=== PATIENT | female | born 1955 | race Caucasian/White ===

== ENCOUNTER 2023-02-07 12:08 | Emergency (ER) | payer BC, MEDICARE, OTHER ==
--- NOTE | 2023-02-07 12:26 | ED Physician Documentation ---
PD HPI DYSPNEA - Stated complaint Stated Complaint: HIGH BP - Chief complaint Chief Complaint: Cardiac - History obtained from History obtained from: Patient - History of Present Illness Timing - onset: How many days ago (has had mild frtonal to general headache for few days, not worsening. Associated with some blurred vision and wiggly vision both eyes. No focal deficit. No loss of vision. Normal thought process and speech. She took BP this morning to see what it was (does not typically check it) and was elevated.) Timing - onset during: Light activity Timing - duration: Days Timing - details: Gradual onset, Still present, Waxing and waning Inciting event(s): No: Out of meds, URI Improved by: No: Rest Worsened by: No: Exertion Associated symptoms: No: Fever, Cough, Wheezing, Bilateral edema, Unilateral edema Similar symptoms before: Diagnosis (she states she used to get similar headaches years ago and Dx as migraine and would take Midrin and would work very well. Has not had script/ headaches for years. Called PMD for script and was told to come to ER due to elevated BP.) Recently seen: Not recently seen Review of Systems Constitutional: denies: Fever, Chills Eyes: reports: Decreased vision (blurred at times). denies: Loss of vision, Photophobia Nose: reports: Congestion. denies: Rhinorrhea / runny nose Throat: denies: Sore throat Respiratory: denies: Cough Skin: denies: Rash Musculoskeletal: denies: Neck pain, Back pain, Extremity swelling Neurologic: reports: Headache. denies: Generalized weakness, Focal weakness, Numbness, Confused, Altered mental status PD PAST MEDICAL HISTORY - Past Medical History Cardiovascular: Hypertension Respiratory: None Neuro: Migraines Endocrine/Autoimmune: None - Present Medications Home Medications: Ambulatory Orders Medication Instructions Recorded Confirmed Butalb/Acetam/Caff 50/325/40 1 each PO Q6H PRN #25 tablet 02/07/23 [Fioricet] Losartan Potassium [Cozaar] 100 mg PO DAILY #20 tab 02/07/23 dexAMETHasone [Decadron] 4 mg PO DAILY #5 tablet 02/07/23 - Allergies Allergies/Adverse Reactions: Allergies Allergy/AdvReac Type Severity Reaction Status Date / Time Penicillins Allergy Hives Verified 02/07/23 12:21 PD ED PE NORMAL - Vitals Vital signs reviewed: Yes - General General: Alert and oriented X 3, No acute distress, Well developed/nourished - HEENT HEENT: PERRL, EOMI, Other (fundi appear normal) - Neck Neck: Supple, no meningeal sign, No adenopathy - Cardiac Cardiac: RRR, No murmur - Respiratory Respiratory: Clear bilaterally - Derm Derm: Normal color, Warm and dry - Extremities Extremities: No edema, No calf tenderness / cord - Neuro Neuro: Alert and oriented X 3, 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, No motor deficit, No sensory deficit, Normal speech Results - Vitals Vitals: Vital Signs - 24 hr 02/07/23 02/07/23 02/07/23 12:21 13:28 14:14 Temperature 36.5 C Heart Rate 81 73 72 Respiratory 16 16 16 Rate Blood Pressure 188/92 H 181/108 H 202/104 H O2 Saturation 98 98 98 Oxygen O2 Source Room air - Labs Labs: Laboratory Tests 02/07/23 02/07/23 02/07/23 13:10 13:10 13:10 WBC 6.1 RBC 4.60 Hgb 14.3 Hct 43.5 MCV 94.6 MCH 31.1 H MCHC 32.9 RDW 12.4 Plt Count 236 MPV 9.8 Neut # (Auto) 3.4 Lymph # (Auto) 2.2 [place] # (Auto) 0.4 Eos # (Auto) 0.1 Baso # (Auto) 0.0 Absolute Nucleated RBC 0.00 Nucleated RBC % 0.0 Sodium 136 Potassium 3.9 Chloride 102 Carbon Dioxide 27 Anion Gap 7.0 BUN 18 Creatinine 0.6 Estimated GFR (MDRD) 100 Glucose 113 H Calcium 9.3 Magnesium 2.0 Total Bilirubin 0.5 AST 16 ALT 23 Alkaline Phosphatase 42 Total Protein 6.9 Albumin 4.1 Globulin 2.8 Albumin/Globulin Ratio 1.5 Lipase 36 TSH 2.72 PD Medical Decision Making - ED course Complexity details: reviewed results (obtained CBC, chemistry and TSH mainly to eval any organ effects of HTN, given possible it may have been longer term elevated. Normal lytes and renal function as well as TSH. Not anemic. ), re- evaluated patient (I think her symptoms sound mostly migrainous with headache and some blurred vision. Consider some HTN effect but not clear if this is just today elevated. Can increase Losartan dose.), considered differential (general, mostly frontal headache, with some visual symptoms. Noted BP elevated today. Does not check regularly. Could be some sinusitis. Otherwise has history of migraines and has component of that. Previous good improvement with Midrin, which has been off market for few years. ), d/w patient ED course: Her symptoms seem likely migrainous, and she feels it similar to ones she has had in the past but has been several years. In past, would take Midrin, but that is off the market for years now. Could try Tryptans type med, but she says the Midrin used to realy work well, and the nearest similar med combo to that would be Fioricet so we can try that. Can add short term steroid decadron for status migraine as well if not effective Firoicet alone. Her symptoms may be from HTN as well, with some headache and visual blurring. No focal deficits to suggest focal process. Normal neuro exam and alertness, so not seeming HTN urgency/emergency. BP number less likely to cause that at just the 180s systolic, though is in range to be possible. Pt cautioned to watch for increasing syumptoms. Meanwhile can double her Losartan dose from 50 to 100. She does not have fluid retention and has normal renal funciton, so I do not feel diuretic would be useful, and increased ARB is safe. Departure - Departure Disposition: 01 Home, Self Care Clinical Impression: Blurring of visual image of both eyes, Elevated blood pressure reading Headache Qualifiers: Headache type: unspecified Headache chronicity pattern: acute headache Intractability: not intractable Qualified Code(s): R51.9 - Headache, unspecified Condition: Stable Record reviewed to determine appropriate education?: Yes Instructions: ED Cephalgia Unspecified Follow-Up: Leona Pate MD [Primary Care Provider] - Prescriptions: Losartan Potassium [Cozaar] 100 mg PO DAILY #20 tab dexAMETHasone [Decadron] 4 mg PO DAILY #5 tablet Butalb/Acetam/Caff 50/325/40 [Fioricet] 1 each PO Q6H PRN #25 tablet PRN Reason: Migraine Comments: Your symptoms may be related to the blood pressure being elevated as it can cause headache and some visual blurriness. Your heart rhythm seems appropriate. There is no signs of kidney abnormality based on your blood test. Your blood test are normal-appearing with a blood count and chemistry panel which includes kidney function, electrolytes, blood sugar. A thyroid screen was also normal. I would suggest increasing your losartan from 50 to 100 mg daily. To begin with you can take 2 of your 50 mg tablets until those are done. You would run out e arlier than expected so I wrote a prescription for some of the 100 mg to continue after that. Take your blood pressure twice daily for the next several days to week and see how it is trending. Follow-up with your primary care if it remains elevated reasonably consistently. Regarding your vision changes and headache, it could also be migraine type symptoms and these are common for that. The previous medication you took, Midrin, for your headache is not on the market anymore. The company discontinued it. The nearest equivalent to that combination of medications and that is 1 called Fioricet. I wrote a prescription for some of those and try those for the headache and see if it is helpful. If your headache continues and it feels more like migraine (your blood pressure improves yet the headache remains, over the next couple of days) then you could add in short course dexamethasone steroid which would be used for status migraine. Stay well-hydrated. Follow-up with your primary care if not improving well over the next few days return if worse. I sent your prescriptions to the [facility] pharmacy Discharge Date/Time: 02/07/23 14:20
[2023-02-07] MEDS ORDERED: ACETAMINOPHEN 325 MG TABLET PO STA (12:48)
[2023-02-07 13:19] LABS: BASOPHILS % (AUTO) 0.7 %; EOSINOPHILS # (AUTO) 0.1 10^3/uL (0.0-0.7); EOSINOPHILS % (AUTO) 0.8 %; HCT - HEMATOCRIT 43.5 % (37.0-47.0); HGB - HEMOGLOBIN 14.3 g/dL (12.0-16.0); LYMPHOCYTES # (AUTO) 2.2 10^3/uL (1.5-3.5); MEAN CORPUSCULAR HEMOGLOBIN 31.1 pg (27.0-31.0); MEAN CORPUSCULAR HGB CONC 32.9 g/dL (32.0-36.0); MEAN CORPUSCULAR VOLUME 94.6 fL (81.0-99.0); MEAN PLATELET VOLUME 9.8 fL (7.9-10.8); MONOCYTES # (AUTO) 0.4 10^3/uL (0.0-1.0); MONOCYTES % (AUTO) 5.9 %; NEUTROPHILS # (AUTO) 3.4 10^3/uL (1.5-6.6); NEUTROPHILS % (AUTO) 56.1 %; PLT - PLATELET COUNT 236 10^3/uL (130-450); RED CELL DISTRIBUTION WIDTH 12.4 % (12.0-15.0); WHITE BLOOD COUNT 6.1 x10^3/uL (4.8-10.8)
[2023-02-07 13:36] LABS: ALBUMIN 4.1 g/dL (3.2-5.5); ALBUMIN/GLOBULIN RATIO 1.5 (1.0-2.2); BILIRUBIN,TOTAL 0.5 mg/dL (0.2-1.0); CALCIUM 9.3 mg/dL (8.5-10.3); CREATININE 0.6 mg/dL (0.4-1.0); POTASSIUM 3.9 mmol/L (3.5-5.0); TOTAL PROTEIN 6.9 g/dL (6.7-8.2)
[2023-02-07] MEDS ORDERED: LOSARTAN 50 MG TABLET PO STA (13:49)
[2023-02-07 14:15] VITALS: BP 202/104
== END 2023-02-07 14:20 | disposition home or self-care (01) ==
LOC: ED 12:08
DX: R51.9 Headache, unspecified (principal); H53.8 Other visual disturbances; I10 Essential (primary) hypertension
CPT/HCPCS: 36415; 80053; 83690; 83735; 84443; 85025; 99283; 99284; A9270

== ENCOUNTER 2024-03-07 09:55 | Outpatient (CLI) | payer MEDICARE ==
--- NOTE | 2024-03-08 08:47 | Ultrasound Report ---
LIMITED ULTRASOUND OF LEFT BREAST: 03/07/2024 CLINICAL: Patient returns today to evaluate a focal asymmetry in the left breast. Comparison is made to exams dated: 03/07/2024 mammogram - [facility], 08/18/2021 ma mmogram - [facility], 04/28/2020 mammogram, and 01/09/2019 mammogram - [facility]. Color flow and real-time ultrasound of the left breast 10 o'clock region were performed. Gan scale images of the real-time examination were reviewed. There is a oval cystic mass in the left breast at 10 o'clock anterior depth. This measures 0.6 x 0.4 x 0.2 cm and is parallel to the skin surface. Internally, it is hypoechoic. Color flow imaging demo nstrates that there is no vascularity present. This correlates with mammography findings. IMPRESSION: BENIGN There is no sonographic evidence of malignancy. The 0.6 cm cystic mass in the left breast is likely a lymph node or complicated cyst, has demontrated two years of stability and is therefore benign. Return to annual mammogram screening schedule is recommended. Findings and recommendations were conveyed to the patient at time of exam. This exam was interpreted at Station ID: [id number]. Electronically Signed By: Verónica yeung/:03/07/2024 17:39:44 letter sent: No_Letter Ultrasound BI-RADS: 2 Benign BI-RADS CATEGORY: (2) - 2 RECOMMENDATION: (ANNUAL) - Recommend routine annual screening mammography. [id number] return to screening LATERALITY: (B)
--- NOTE | 2024-03-08 08:47 | Mammography Report ---
BILATERAL DIGITAL DIAGNOSTIC MAMMOGRAM 3D/2D WITH SPOT COMPRESSION: 03/07/2024 CLINICAL: Patient returns today to evaluate a focal asymmetry in the left breast. Due for bilateral e xam. Comparison is made to exams dated: 08/18/2021 mammogram - [facility], 01/09/2019 mammogram, a nd 04/28/2020 mammogram - [facility]. There are scattered areas of fibroglandular density in both breasts (category b / 25%-50% glandular t issue). There is an oval asymmetry in the left breast at 10 o'clock anterior depth. This is seen in addition al views. This is stable to less prominent. No other significant masses, calcifications, or other findings are seen in either breast. Mammograms are otherwise stable. IMPRESSION: INCOMPLETE: NEEDS ADDITIONAL IMAGING EVALUATION The asymmetry in the left breast most likely is a cyst or a lymph node, has demontrated two years of stability and is therefore benign. An ultrasound is recommended for full evaluation. This was perfor med immediately following this exam. Bilateral mammograms are stable. Based on the Tyrer Cuzick model (a risk assessment model) the patient's lifetime risk is 5.9% and her 10 year risk is 3.3%. According to the ACR, ACS, and NCCN guidelines, an annual breast MRI exam teresa g with mammogram is recommended if the patient's lifetime risk is 20% or greater. This exam was interpreted at Station ID: [id number]. NOTE: For mammograms, a report in lay terms will be sent to the patient. Approximately 15% of breast malignancies will not be visualized mammographically. In the management of a palpable breast mass, a negative mammogram must not discourage biopsy of a clinically suspicious lesion. Electronically Signed By: Verónica yeung/:03/07/2024 17:36:26 ACR BI-RADS Category 0: Incomplete 3340F PARENCHYMAL PATTERN: (A) - The breast(s) demonstrate(s) scattered fibroglandular densities. BI-RADS CATEGORY: (0) - 0 Ultrasound [id number] Immediate follow-up LATERALITY: (B)
== END 2024-03-07 09:56 | disposition home or self-care (01) ==
LOC: DI 09:55
PROVIDERS: ATTEND Internal Medicine
DX: R92.8 Other abnormal and inconclusive findings on diagnostic imaging of breast (principal); R92.323 Mammographic fibroglandular density, bilateral breasts

== ENCOUNTER 2024-06-28 08:30 | Day surgery (SDC) | payer MEDICARE ==
[2024-06-28] MEDS: LACTATED RINGERS 1,000 ML IV ONE ×2 (08:40→09:20)
[2024-06-28] MEDS ORDERED: PROPOFOL 500 MG/50 ML 500 MG/50 ML VIAL ONE (08:59)
[2024-06-28] MEDS ORDERED: LIDOCAINE-MPF 2% 5 ML VIAL ONE (08:59)
--- NOTE | 2024-06-28 09:34 | ANESTHESIA ---
Pre-Anesthesia VS, & Labs - Diagnosis Gerd, screening - Procedure EGD, colonoscopy Vital Signs: Temp Pulse Resp BP Pulse Ox O2 Flow Rate 36.0 C L 66 17 89/57 L 89 L 06/28/24 09:20 06/28/24 09:20 06/28/24 09:20 06/28/24 09:20 06/28/24 09:20 Height: 5 ft 9 in Weight (kg): 87 kg Body Mass Index: 28.3 BMI Classification: Overweight - NPO Other - Is Patient ?: No Home Medications and Allergies Allergies/Adverse Reactions: Allergies Allergy/AdvReac Type Severity Reaction Status Date / Time Penicillins Allergy Hives Verified 02/07/23 12:21 Anes History & Medical History - Anesthetic History Anesthesia Complications: reports: No previous complications - Medical History Cardiovascular: reports: Hypertension Pulmonary: reports: None Neuro: reports: Migraines Endocrine/Autoimmune: reports: None Smoking Status: Former smoker Psychosocial: reports: Alcohol (2 wine a day) - Surgical History General: reports: Colonoscopy Gynecologic: reports: Other Plan Anesthesia Type: Total IV Consent for Procedure(s) Verified and Reviewed: Yes Code Status: Attempt Resuscitation ASA classification: 2-Mild systemic disease Is this case an emergency?: No
[2024-06-28] MEDS ORDERED: PROPOFOL 200 MG/20 ML VIAL IVP ONE (10:07)
[2024-06-28 10:44] VITALS: BP 159/85; O2SAT 97
--- NOTE | 2024-06-28 11:22 | ANESTHESIA POST OP EVALUATION ---
Anesthesia Post Eval - Post Anesthesia Eval Vitals: Last Vital Signs Temp 36.9 C 06/28/24 10:32 Pulse 73 06/28/24 10:40 Resp 16 06/28/24 10:40 BP 159/85 H 06/28/24 10:40 Pulse Ox 97 06/28/24 10:40 O2 Flow Rate CV Function Including HR & BP: Stable Pain Control: Satisfactory Nausea & Vomiting: Negative Mental Status: Baseline Respiratory Status: Airway Patent Hydration Status: Satisfactory Anesthesia Complications: None
== END 2024-06-28 08:31 | disposition home or self-care (01) ==
LOC: SDS 08:30
PROVIDERS: ATTEND Surgery
DX: Z12.11 Encounter for screening for malignant neoplasm of colon (principal); K57.30 Diverticulosis of large intestine without perforation or abscess without bleeding; K31.7 Polyp of stomach and duodenum; R12 Heartburn; I10 Essential (primary) hypertension; Z87.891 Personal history of nicotine dependence; Z86.010 Personal history of colon polyps
CPT/HCPCS: 43235; G0121; J7120